=== PATIENT | female | born 1995 | race African-American/Black ===

== ENCOUNTER 2016-12-02 17:12 | Emergency (ER) | payer OTHER ==
[~2016-12-02] VITALS: Ht 157.5 cm; Wt 68.2 kg
[~2016-12-02 17:12] MED LIST: KLOR-CON SPRIN10 MEQ PO; MACROBID100 MG PO; PRENATAL TABLE1 EAC3 PO; PROMETHAZINE HC25 M1 PO; RANITIDINE HCL150 M1 PO; REGLAN10 MG PO; ZOFRAN ODT4 MG PO
[2016-12-02 18:02] LABS: HEMATOCRIT 38.9 % (36.0-46.0); MCH 21.7 PG (29.0-34.0); MCHC 30.8 G/DL (30.0-36.0); MCV 70.2 FL (83-99); MEAN PLAT.VOLUME 9.8 uM^3 (9.5-12.4); PLATELET COUNT 222 K/uL (156-360); RBC DIS.WIDTH-CV 15.9 % (11.8-14.6); RBC DIS.WIDTH-SD 39.2 % (39-53); RED BLOOD COUNT 5.54 M/uL (3.80-5.20); WHITE BLOOD COUNT 5.5 K/uL (4.1-10.2)
[2016-12-02 18:07] LABS: CHLORIDE 103 mEq/L (99-109); POTASSIUM 3.9 mEq/L (3.7-5.4); SODIUM 136 mEq/L (136-147)
[2016-12-02 18:09] LABS: GLUCOSE 88 mg/dL (70-99)
[2016-12-02 18:10] LABS: ANION GAP 10 MEQ/L (2-14)
[2016-12-02 18:11] LABS: TOTAL BILIRUBIN 0.6 mg/dL (0.0-1.0)
[2016-12-02 18:13] LABS: ALKALINE PHOSPHATASE 51 IU/L (3-129); GFR ESTIMATE (CALCULATED) > 59 mL/min/
[2016-12-02 18:14] LABS: UREA NITROGEN (BUN) 7 mg/dL (9-23)
[2016-12-02 18:16] LABS: LIPASE 6 U/L (1.0-51.0)
[2016-12-02 18:24] LABS: BILIRUBIN NEGATIVE; BLOOD NEGATIVE; COLOR YELLOW ((YELLOW)); GLUCOSE (STRIP) NEGATIVE; KETONES NEGATIVE; LEUKOCYTES NEGATIVE; NITRITE NEGATIVE; PROTEIN (STRIP) NEGATIVE; SPECIFIC GRAVITY 1.016 (1.000-1.030); UROBILINOGEN 0.2 MG/DL (0.2-1.0)
[2016-12-02 18:32] LABS: ADD MIUA? NO; UCUL ADDED? NO
[2016-12-02 18:48] LABS: QUANTITATIVE HCG 56604.4 MIU/ML
[2016-12-02] MEDS ORDERED: ZOFRAN ODT4 MG PO (21:33)
[2016-12-02 21:40] VITALS: BP 115/67
== END 2016-12-02 21:41 | disposition home or self-care (01) ==
LOC: EME 17:12
DX: O26.891 Other specified pregnancy related conditions, first trimester (principal); R10.30 Lower abdominal pain, unspecified; Z3A.01 Less than 8 weeks gestation of pregnancy
CPT/HCPCS: 76801; 80053; 81003; 83690; 84702; 85027; 99281; 99285

== ENCOUNTER 2016-12-05 11:42 | Emergency (ER) | payer OTHER ==
[~2016-12-05] VITALS: Ht 157.5 cm; Wt 66.8 kg
[2016-12-05 13:53] LABS: ADD MIUA? YES; BILIRUBIN NEGATIVE; BLOOD NEGATIVE; COLOR YELLOW ((YELLOW)); GLUCOSE (STRIP) NEGATIVE; KETONES 80; LEUKOCYTES NEGATIVE; NITRITE NEGATIVE; PROTEIN (STRIP) 100; SPECIFIC GRAVITY 1.035 (1.000-1.030); UROBILINOGEN 0.2 MG/DL (0.2-1.0)
[2016-12-05 14:01] LABS: BACTERIA RARE /HPF; EPITHELIAL CELLS 2+ /HPF; MUCUS TRACE /LPF; RED BLOOD CELLS 0-5 /HPF (0-5); UCUL ADDED? NO; WHITE BLOOD CELLS 0-5 /HPF (0-5)
[2016-12-05 14:07] LABS: HEMATOCRIT 43.2 % (36.0-46.0); MCH 21.7 PG (29.0-34.0); MCHC 31.3 G/DL (30.0-36.0); MCV 69.5 FL (83-99); MEAN PLAT.VOLUME 10.1 uM^3 (9.5-12.4); PLATELET COUNT 234 K/uL (156-360); RBC DIS.WIDTH-CV 16.4 % (11.8-14.6); RBC DIS.WIDTH-SD 37.8 % (39-53); RED BLOOD COUNT 6.22 M/uL (3.80-5.20)
[2016-12-05 14:09] LABS: CHLORIDE 101 mEq/L (99-109); POTASSIUM 3.5 mEq/L (3.7-5.4); SODIUM 137 mEq/L (136-147)
[2016-12-05 14:11] LABS: GLUCOSE 74 mg/dL (70-99)
[2016-12-05 14:12] LABS: ANION GAP 17 MEQ/L (2-14)
[2016-12-05 14:14] LABS: ALKALINE PHOSPHATASE 52 IU/L (3-129)
[2016-12-05 14:15] LABS: GFR ESTIMATE (CALCULATED) > 59 mL/min/
[2016-12-05 14:16] LABS: UREA NITROGEN (BUN) 8 mg/dL (9-23)
[2016-12-05 14:22] LABS: TOTAL BILIRUBIN 0.9 mg/dL (0.0-1.0)
[2016-12-05 14:46] LABS: QUANTITATIVE HCG 93519.4 MIU/ML
[2016-12-05] MEDS ORDERED: ZOFRAN ODT4 MG PO (15:35)
[2016-12-05] MEDS ORDERED: PHENERGAN25 MG PR (15:35)
[2016-12-05 15:45] VITALS: BP 132/80
== END 2016-12-05 15:47 | disposition home or self-care (01) ==
LOC: EME 11:42
DX: O21.0 Mild hyperemesis gravidarum (principal); O26.891 Other specified pregnancy related conditions, first trimester; E86.0 Dehydration; Z3A.08 8 weeks gestation of pregnancy; Z88.0 Allergy status to penicillin
CPT/HCPCS: 80053; 81003; 84702; 85027; 99281; 99284; J2405; J7030

== ENCOUNTER 2016-12-18 11:00 | Observation (INO) | payer OTHER ==
[~2016-12-18] VITALS: Ht 157.5 cm; Wt 68.3 kg
[~2016-12-18 11:00] MED LIST changes: +PHENERGAN25 MG PR; -PROMETHAZINE HC25 M1 PO; +PROMETHAZINE HC25 M1 PR
[2016-12-18 12:16] LABS: CHLORIDE 99 mEq/L (99-109); POTASSIUM 2.9 mEq/L (3.7-5.4); SODIUM 135 mEq/L (136-147)
[2016-12-18 12:18] LABS: GLUCOSE 85 mg/dL (70-99)
[2016-12-18 12:20] LABS: ANION GAP 14 MEQ/L (2-14); TOTAL BILIRUBIN 0.5 mg/dL (0.0-1.0)
[2016-12-18 12:22] LABS: ALKALINE PHOSPHATASE 47 IU/L (3-129); GFR ESTIMATE (CALCULATED) > 59 mL/min/
[2016-12-18 12:23] LABS: UREA NITROGEN (BUN) 7 mg/dL (9-23)
[2016-12-18 12:24] LABS: HEMATOCRIT 39.4 % (36.0-46.0); MCH 22.3 PG (29.0-34.0); MCV 69.7 FL (83-99); MEAN PLAT.VOLUME 10.8 uM^3 (9.5-12.4); PLATELET COUNT 248 K/uL (156-360); RBC DIS.WIDTH-CV 15.9 % (11.8-14.6); RBC DIS.WIDTH-SD 38.1 % (39-53); RED BLOOD COUNT 5.65 M/uL (3.80-5.20); WHITE BLOOD COUNT 6.8 K/uL (4.1-10.2)
[2016-12-18 13:40] LABS: QUANTITATIVE HCG 108487.5 MIU/ML
[2016-12-18 15:30] LABS: ADD MIUA? YES; BILIRUBIN NEGATIVE; BLOOD NEGATIVE; COLOR YELLOW ((YELLOW)); GLUCOSE (STRIP) NEGATIVE; KETONES 80; LEUKOCYTES NEGATIVE; NITRITE NEGATIVE; PROTEIN (STRIP) 100; SPECIFIC GRAVITY 1.036 (1.000-1.030); UROBILINOGEN 0.2 MG/DL (0.2-1.0)
[2016-12-18 15:52] LABS: BACTERIA RARE /HPF; EPITHELIAL CELLS 1+ /HPF; MUCUS 3+ /LPF; RED BLOOD CELLS 0-5 /HPF (0-5); UCUL ADDED? NO; WHITE BLOOD CELLS 0-5 /HPF (0-5)
[2016-12-18 21:11] VITALS: BP 102/58
[2016-12-18 23:48] VITALS: BP 110/60
[2016-12-19 03:46] VITALS: BP 105/61
[2016-12-19 07:07] LABS: HEMATOCRIT 31.7 % (36.0-46.0); MCH 22.5 PG (29.0-34.0); MCHC 32.5 G/DL (30.0-36.0); MCV 69.4 FL (83-99); MEAN PLAT.VOLUME 10.3 uM^3 (9.5-12.4); PLATELET COUNT 183 K/uL (156-360); RBC DIS.WIDTH-CV 15.8 % (11.8-14.6); RBC DIS.WIDTH-SD 38.5 % (39-53); RED BLOOD COUNT 4.57 M/uL (3.80-5.20); WHITE BLOOD COUNT 4.3 K/uL (4.1-10.2)
[2016-12-19 07:15] VITALS: BP 104/57
[2016-12-19 07:21] LABS: ANION GAP 9 MEQ/L (2-14); CHLORIDE 107 MEQ/L (99-109); GFR ESTIMATE (CALCULATED) > 59 mL/min/; GLUCOSE 79 mg/dL (70-99); POTASSIUM 3.7 MEQ/L (3.7-5.4); SAMPLE HEMOLYSIS CHECK 0; SAMPLE ICTERIC CHECK 0; SAMPLE LIPEMIA CHECK 0; SODIUM 136 MEQ/L (136-147); UREA NITROGEN (BUN) 3 mg/dL (9-23)
[2016-12-19 09:24] LABS: MAGNESIUM 1.9 mg/dl (1.3-2.7)
[2016-12-19 11:35] VITALS: BP 108/61
[2016-12-19 15:23] VITALS: BP 106/59
[2016-12-19] MEDS ORDERED: ZOFRAN ODT4 MG PO (16:28)
[2016-12-19] MEDS ORDERED: PHENADOZ25 MG PR (16:28)
== END 2016-12-19 19:15 | disposition home or self-care (01) ==
LOC: RME 11:00 → EME 11:00 → EDOF 19:26 → 2EASTP 19:26
PROVIDERS: Hospitalist
DX: O21.1 Hyperemesis gravidarum with metabolic disturbance (principal); E86.0 Dehydration; E87.1 Hypo-osmolality and hyponatremia; E87.6 Hypokalemia; Z3A.10 10 weeks gestation of pregnancy
CPT/HCPCS: 76801; 80048; 80053; 81003; 83735; 84132 91; 84443; 84702; 85027; 93005; 99281; 99285; G0378; J2405; J3480; J7030